=== PATIENT | male | born 1990 | race Caucasian/White ===

== ENCOUNTER 2018-03-09 16:03 | Observation (INO) ==
[2018-03-09] MEDS ORDERED: Naloxone 0.4 MG/ML INJ IVP PRN (18:56)
--- NOTE | 2018-03-09 18:56 | Internal Med History&Physical ---
<TarpleyRona Jimenez - Last Filed: 03/09/18 21:02> Date of Encounter: 03/09/18 Time of Encounter: 18:56 Internal Medicine - H&P: HPI Chief complaint: Cyclic vomiting Admitted From: Hospital to Hospital Transfer ([facility]) Plans for Post Hospital Care: Home History of present illness: Mr. Horvath is a 27 year old male with hx of gastroenteritis. The patient went to [facility] today after having N and V for the past 3 days. The patient was being dismissed and and began to have dizziness. Orthostatics were negative in the ED, will get another set in the am. Ct of abd/pelvis showed no acute processes. The patient indicated that he took one of his grandfathers zantac a few days ago and felt better for a little while. His wbc is 15.0, ast 19, alt 21 , amylase is 25. The patient urine is + for cannabinoids. The vomiting is likely a result of cannabinoid hyperemesis syndrome. Patient is npo. Prior to my assessment the patient was in the shower in the patient room. He indicated that the abdominal pain gets better after taking hot showers. Past Med Surg Social Fam HX - Past Medical History Medical history: no medical history Psychiatric history: ADHD, bipolar - Past Surgical History Additional surgical history: foot surgery. - Social History Smoking Status: Current every day smoker Smokeless Tobacco Status: No Alcohol use: none Drug use: none, other - Family History Mother Living Status: Still Living Father History Unknown: Yes Internal Medicine - H&P: Meds Dicyclomine [Bentyl] 20 mg PO QID PRN #20 capsule 03/09/18 [Rx] Omeprazole [PriLOSEC] 20 mg PO DAILY #30 cap 03/09/18 [Rx] Ondansetron ODT [Zofran ODT] 4 mg PO Q6H PRN #10 tab.rapdis 03/09/18 [Rx] 3 Allergy/AdvReac Type Severity Reaction Status Date / Time No Known Allergies Allergy Verified 03/09/18 10:49 All Systems PM: A 10-system review of systems was performed and is negative for pertinent findings except as documented above in the HPI. - Constitutional Constitutional: weight loss (reported 30 pound lose since last year), no chills , no fever(s), no night sweats - EENT Eyes: no change in vision, no discharge, no pain, no photophobia Ears: no ear discharge, no ear pain, no tinnitus Nose, mouth and throat: no dysphagia, no nasal discharge, no neck pain, no sore throat - Cardiovascular Cardiovascular ROS IM: no chest pain, no diaphoresis, no dyspnea, no lightheadedness, no palpitations, no syncope - Respiratory Respiratory: no cough, no dyspnea, no wheezing, no excessive phlegm production - Gastrointestinal Gastrointestinal: abdominal pain, nausea, vomiting, no diarrhea, no hematemesis , no hematochezia, no melena - Musculoskeletal Musculoskeletal ROS IM: no numbness, no tingling - Integumentary Integumentary IM: no rash, no unusual bruising - Neurological Neurological ROS: no confusion, no convulsions, no focal weakness, no numbness, no tingling, no tremor(s) - Hematologic/Lymphatic Hematologic/Lymphatic: no easy bruising - Constitutional Vitals: Temp Pulse Resp BP Pulse Ox 97.8 F 52 17 150/76 99 03/09/18 18:17 03/09/18 18:17 03/09/18 18:17 03/09/18 18:17 03/09/18 18:17 General appearance: Present: A&O X 3, answers questions appropriately Exam: 10 Point exam as outlined below - Head Head exam: Present: atraumatic, normal inspection, normocephalic - Eye Eye exam: Present: PERRL, conjuntiva pink, sclera anicteric Pupils: Present: PERRL - Neck Neck exam general surgery: Present: supple, trachea midline. Absent: lymphadenopathy - Respiratory Respiratory exam: Present: CTAB. Absent: accessory muscle use, rales, rhonchi, wheezes - Cardiovascular Cardiovascular exam: Present: RRR, +S1, +S2. Absent: diastolic murmur, gallop, rubs, systolic murmur - GI/Abdominal GI/Abdominal exam: Present: normal bowel sounds, soft, tenderness (Around umbilical area), no peritoneal signs. Absent: distended - Extremities Exam Extremities exam: Present: warm, radial pulses palpable and symmetrical. Absent : calf tenderness, cyanotic, pedal edema - Neurological Exam Neurological exam: Present: CN II-XII intact, oriented X3, no focal deficits. Absent: pronater drift, facial droop, speech deficit - Skin Skin exam: Present: dry, intact - Assessment and plan (1) Cyclic vomiting syndrome Current Visit: No Status: Acute Assessment and plan: Ct of abdomen without acute processes. Zofran iv prn Benadryl iv prn Protonix daily Qualifiers: Vomiting Intractability: non-intractable Nausea presence: with nausea Qualified Code(s): G43.A0 - Cyclical vomiting, not intractable (2) Cannabinoid hyperemesis syndrome Current Visit: Yes Status: Acute Assessment and plan: Patient + for cannabinoid use. Zofran iv prn Benadryl iv prn Protonix bid (3) Abdominal pain Current Visit: Yes Status: Acute Assessment and plan: Ct of abdomen without acute processes. Zofran iv prn Benadryl iv prn Protonix daily Qualifiers: Abdominal location: periumbilical Qualified Code(s): R10.33 - Periumbilical pain - Time Spent With Patient Total time spent is greater than 50% in coordination of care (as documented) at patient's floor/unit and/or counseling patient: less than 15 minutes <Benjamin Orellana - Last Filed: 03/09/18 21:49> Date of Encounter: 03/09/18 Internal Medicine - H&P: HPI History of present illness: Mr. Horvath is a 27 year old male All Systems PM: A 10-system review of systems was performed and is negative for pertinent findings except as documented above in the HPI. - Constitutional Vitals: Temp Pulse Resp BP Pulse Ox 97.8 F 52 17 150/76 99 03/09/18 18:17 03/09/18 18:17 03/09/18 18:17 03/09/18 18:17 03/09/18 20:02 - Attending Attestation I have seen and examined the patient with Rona Doty CNP and agree with his/ her assessment and plan. 27-year-old mindy with history of marijuana abuse presented with intermittent history of nausea and vomiting for the last 6 years which gradually worsened over the last few days. Physical exam was unremarkable with normal temperature and vital signs. Abdomen is soft and nontender without any rebound or guarding. Lap showed leukocytosis of 15 but otherwise unremarkable. Urine tox screen was positive for marijuana. He also states the hot shower and being in a dark room improves his symptoms. He likely has cyclical vomiting syndrome/cavities hyperemesis syndrome. We will treat symptomatically with Zofran, Phenergan, and Toradol. There is anecdotal evidence for usage of D10 (for children) which we will try. He will benefit from prophylactic therapy as an outpatient and cessation of marijuana use which he was extensively counseled on. Benjamin Orellana MD - Time Spent With Patient Total time spent is greater than 50% in coordination of care (as documented) at patient's floor/unit and/or counseling patient:
[2018-03-09] MEDS ORDERED: 0.9 % Sodium Chloride 1,000 ML IVC SCH (19:00)
[2018-03-09] MEDS ORDERED: Ondansetron 4 MG/2 ML VIAL IVP PRN (19:03)
[2018-03-09] MEDS: Pantoprazole 40 MG VIAL IVP SCH (20:08)
[2018-03-09] MEDS ORDERED: D10% in Water 500 ML IV SOLUTION IVC SCH (22:15)
[2018-03-09] MEDS: D10% in Water 500 ML IVC SCH (23:34)
[2018-03-10] MEDS: Pantoprazole 40 MG VIAL IVP SCH ×2 (05:17→15:50)
[2018-03-10 05:23] LABS: Basophils % 0.2 %; Eosinophils % 0.3 %; Hematocrit 43.4 % (37.5-50.1); Hemoglobin 14.4 g/dL (12.9-16.9); Immature Granulocytes % 0.3 % (0-4); Lymphocytes # 2.9 K/mcL (0.6-4.6); Lymphocytes % 27.7 %; Mean Corpuscular HGB Conc 33.2 g/dL (31.6-35.5); Mean Corpuscular Hemoglobin 28.5 pg (28.0-33.3); Mean Corpuscular Volume 85.8 fL (83.0-100.0); Mean Platelet Volume 11.6 fL (9.4-12.4); Monocytes % 9.5 %; Neutrophils # 6.5 K/mcL (1.6-8.9); Platelet Count 185 K/mcL (140-400); Red Blood Count 5.06 M/mcL (4.19-5.50); Red Cell Distribution Width 13.8 % (11.5-14.5)
[2018-03-10 05:36] LABS: BUN/Creatinine Ratio 18 (6-26); Blood Urea Nitrogen 16 mg/dL (6-20); Carbon Dioxide 20 mEq/L (23-29); Chloride 112 mEq/L (98-107); Glucose 100 mg/dL (70-105); Osmolality,Calculated 289 (280-300); Potassium 3.7 mEq/L (3.5-5.1); Sodium 139 mEq/L (136-145); eGFR For Non-African Americans > 60 (> 60)
--- NOTE | 2018-03-10 09:24 | Internal Med Progress Note ---
Hospitalist Progress Note - Encounter Date of Encounter: 03/10/18 Time of Encounter: 09:24 - Subjective Interval History: Patient seen and examined at bedside, he continues to experience nausea - Exam Vitals: Temp Pulse Resp BP Pulse Ox 98.0 F 68 16 117/67 97 03/10/18 07:12 03/10/18 07:12 03/10/18 07:12 03/10/18 07:12 03/10/18 07:12 Exam: Constitutional Constitutional: no chills, no fever(s), no night sweats - EENT Eyes: no change in vision, no discharge, no pain, no photophobia Nose, mouth and throat: no dysphagia, no nasal discharge, no neck pain, no sore throat - Cardiovascular Cardiovascular ROS IM: no chest pain, no diaphoresis, no dyspnea, no lightheadedness, no palpitations, no syncope - Respiratory Respiratory: cough - Gastrointestinal Gastrointestinal: no abdominal pain, diarrhea- has nausea, vomiting - Genitourinary Genitourinary: no change in urinary stream, no dysuria, no flank pain, no hematuria - Musculoskeletal Musculoskeletal ROS IM: no numbness, no tingling - Integumentary Integumentary IM: no rash, no unusual bruising - Neurological Neurological ROS: no confusion, no convulsions, no focal weakness, no numbness, no tingling, no tremor(s) - Psychiatric Psychiatric: anxiety - Assessment and Plan (1) Abdominal pain Current Visit: Yes Status: Acute Assessment and Plan: 1 CT of abd without acute process- no white count or fever Cont zofran - phenergan as needed Benadryl PRN Protonix BID stool occult blood (2) Cannabinoid hyperemesis syndrome Current Visit: Yes Status: Acute Assessment and Plan: 1 patient positive for cannabinoid - he does admit to marajuana use cont with zofran prn nausea benadryl prn IV Protonix BID phenergan IV advance diet as needed (3) Intractable vomiting with nausea Current Visit: Yes Status: Acute Assessment and Plan: Patient + for cannabinoid use. Zofran iv prn Benadryl iv prn Protonix bid IVF advance diet as tolerated monitor electrolytes and replace as needed DVT Prophylaxis: SCD - Time Spent with Patient Total time spent is greater than 50% in coordination of care (as documented) at patient's floor/unit and/or counseling patient: Internal Medicine: Result - Labs CBC & Chem 7: 03/10/18 04:32 03/10/18 04:32 Labs: Short CBC 03/10/18 Range/Units 04:32 WBC 10.5 (4.3-11.1) K/mcL Hgb 14.4 (12.9-16.9) g/dL Hct 43.4 (37.5-50.1) % Plt Count 185 (140-400) K/mcL Neutrophils # 6.5 (1.6-8.9) K/mcL BMP 03/10/18 04:32 Sodium 139 Potassium 3.7 Chloride 112 H Carbon Dioxide 20 L BUN 16 Creatinine 0.87 Glucose 100 Calcium 9.0 - VTE Documentation of Mechanical Device: Venous foot pump, device Consult Discharge Plan - Plan Referrals: NONE,PCP [Primary Care Provider] - (1) Abdominal pain Qualifiers: Abdominal location: periumbilical Qualified Code(s): R10.33 - Periumbilical pain (3) Intractable vomiting with nausea Qualifiers: Vomiting type: cyclical vomiting Qualified Code(s): G43.A1 - Cyclical vomiting, intractable
[2018-03-10] MEDS ORDERED: *HR* Promethazine 25 MG/ML VIAL IVP PRN (14:20)
[2018-03-10] MEDS: D10% in Water 500 ML IVC SCH ×2 (15:50→15:56)
[2018-03-11 05:22] LABS: Basophils # 0.1 K/mcL (0.0-0.2); Basophils % 0.6 %; Eosinophils # 0.1 K/mcL (0.0-0.6); Hematocrit 41.2 % (37.5-50.1); Hemoglobin 13.9 g/dL (12.9-16.9); Immature Granulocytes % 0.5 % (0-4); Lymphocytes # 3.1 K/mcL (0.6-4.6); Lymphocytes % 36.6 %; Mean Corpuscular HGB Conc 33.7 g/dL (31.6-35.5); Mean Corpuscular Hemoglobin 29.4 pg (28.0-33.3); Mean Corpuscular Volume 87.3 fL (83.0-100.0); Mean Platelet Volume 10.8 fL (9.4-12.4); Monocytes # 0.7 K/mcL (0.0-1.3); Monocytes % 8.5 %; Neutrophils # 4.4 K/mcL (1.6-8.9); Platelet Count 205 K/mcL (140-400); Red Blood Count 4.72 M/mcL (4.19-5.50); Red Cell Distribution Width 13.6 % (11.5-14.5); Segmented Neutrophils % 52.8 %
[2018-03-11] MEDS: Pantoprazole 40 MG VIAL IVP SCH ×2 (05:29→18:02)
[2018-03-11 05:45] LABS: BUN/Creatinine Ratio 14 (6-26); Blood Urea Nitrogen 13 mg/dL (6-20); Calcium 8.7 mg/dL (8.6-10.3); Carbon Dioxide 22 mEq/L (23-29); Chloride 110 mEq/L (98-107); Glucose 97 mg/dL (70-105); Osmolality,Calculated 286 (280-300); Potassium 3.3 mEq/L (3.5-5.1); Sodium 138 mEq/L (136-145); eGFR For Non-African Americans > 60 (> 60)
--- NOTE | 2018-03-11 09:22 | Internal Med Progress Note ---
Hospitalist Progress Note - Encounter Date of Encounter: 03/11/18 Time of Encounter: 09:22 - Subjective Interval History: Patient seen and examined at bedside, he did have some clear liquids overnight and vomiting has improved. - Exam Vitals: Temp Pulse Resp BP Pulse Ox 97.6 F 58 17 104/65 98 03/11/18 06:23 03/11/18 06:23 03/11/18 06:23 03/11/18 06:23 03/11/18 06:23 Exam: Constitutional Constitutional: weight loss (reported 30 pound lose since last year), no chills , no fever(s), no night sweats - EENT Eyes: no change in vision, no discharge, no pain, no photophobia Ears: no ear discharge, no ear pain, no tinnitus Nose, mouth and throat: no dysphagia, no nasal discharge, no neck pain, no sore throat - Cardiovascular Cardiovascular ROS IM: no chest pain, no diaphoresis, no dyspnea, no lightheadedness, no palpitations, no syncope - Respiratory Respiratory: no cough, no dyspnea, no wheezing, no excessive phlegm production - Gastrointestinal Gastrointestinal: abdominal pain, nausea, vomiting, no diarrhea, no hematemesis , no hematochezia, states he had has had some dark stools - Musculoskeletal Musculoskeletal ROS IM: no numbness, no tingling - Integumentary Integumentary IM: no rash, no unusual bruising - Neurological Neurological ROS: no confusion, no convulsions, no focal weakness, no numbness, no tingling, no tremor(s) - Hematologic/Lymphatic Hematologic/Lymphatic: no easy bruising - Assessment and Plan (1) Abdominal pain Current Visit: Yes Status: Acute Assessment and Plan: 1 CT of abd without acute process- no white count or fever Cont zofran - phenergan as needed Benadryl PRN Protonix BID stool occult blood - positive GI was consulted and patient is nothing by mouth and will undergo EGD today (2) Cannabinoid hyperemesis syndrome Current Visit: Yes Status: Acute Assessment and Plan: 1 patient positive for cannabinoid - he does admit to marajuana use cont with zofran prn nausea benadryl prn IV Protonix BID phenergan IV advance diet as needed (3) Intractable vomiting with nausea Current Visit: Yes Status: Acute Assessment and Plan: Patient + for cannabinoid use. Zofran iv prn Benadryl iv prn Protonix bid IVF advance diet as tolerated monitor electrolytes and replace as needed DVT Prophylaxis: SCD - Time Spent with Patient Total time spent is greater than 50% in coordination of care (as documented) at patient's floor/unit and/or counseling patient: Internal Medicine: Result - Labs CBC & Chem 7: 03/11/18 04:23 03/11/18 04:23 Labs: Short CBC 03/11/18 Range/Units 04:23 WBC 8.3 (4.3-11.1) K/mcL Hgb 13.9 (12.9-16.9) g/dL Hct 41.2 (37.5-50.1) % Plt Count 205 (140-400) K/mcL Neutrophils # 4.4 (1.6-8.9) K/mcL BMP 03/11/18 04:23 Sodium 138 Potassium 3.3 L Chloride 110 H Carbon Dioxide 22 L BUN 13 Creatinine 0.90 Glucose 97 Calcium 8.7 - VTE Documentation of Mechanical Device: Venous foot pump, device Consult Discharge Plan - Plan Referrals: NONE,PCP [Primary Care Provider] - (1) Abdominal pain Qualifiers: Abdominal location: periumbilical Qualified Code(s): R10.33 - Periumbilical pain (3) Intractable vomiting with nausea Qualifiers: Vomiting type: cyclical vomiting Qualified Code(s): G43.A1 - Cyclical vomiting, intractable
[2018-03-11] MEDS ORDERED: 0.9 % Sodium Chloride 1,000 ML IVC SCH (14:45)
[2018-03-11] MEDS ORDERED: *HR* Midazolam HCl 5 MG/5 ML VIAL IVP ONE ×2 (14:50→15:07)
[2018-03-11] MEDS ORDERED: *HR* FentaNYL (PF) 100 MCG/2 ML VIAL ONE (14:51)
[2018-03-11] MEDS ORDERED: Tetracaine/Benzocaine/Butamben 200MG/SPRAY (100SPY/BOT) MM ONE (15:07)
[2018-03-11] MEDS ORDERED: *HR* FentaNYL (PF) 100 MCG/2 ML VIAL IVP ONE (15:07)
[2018-03-11] MEDS ORDERED: Simethicone 40 MG/0.6 ML MLS IR ONE (15:07)
--- NOTE | 2018-03-11 15:09 | Pre-Sedation Evaluation ---
Pre-sedation evaluation - Pre-sedation checklist Date of procedure: 03/11/18 Procedure: egd Recent Vitals: Last Vital Signs Temp 98.1 F 03/11/18 15:04 Pulse 53 03/11/18 15:04 Resp 16 03/11/18 15:04 BP 129/77 03/11/18 15:04 Pulse Ox 100 03/11/18 15:04 H&P (including ROS) documented in medical record: Yes Previous reaction to sedatives/anesthetics: No Dietary Status: NPO after Midnight Dentition: poor dentition ASA Classification *see protocol: CLASS I-Normal, healthy patient, CLASS III- Severe systemic disease Plan of Care: Pt appropriate candidate for procedure/moderate/conscious sedation , Risks/benefits of procedure/sedation discussed w/ patient/family Cardiac Registry (Cardio Only) - Functional Capacity - Clincal Frailty Scale
[2018-03-11] MEDS ORDERED: *HR* Promethazine 25 MG/ML VIAL IVP ONE (15:11)
--- NOTE | 2018-03-11 15:17 | Gastroenterology Consult Note ---
<GibsonJosé sinha - Last Filed: 03/11/18 15:15> Date of Encounter: 03/11/18 Time of Encounter: 11:45 - Assessment and plan (1) Abdominal pain Current Visit: Yes Status: Acute Assessment and plan: Continue PPI. Plan for EGD today to r/o esophagitis, gastritis, duodenitis, PUD , MW tear, or AVM. Keep NPO for scopes. Qualifiers: Abdominal location: periumbilical Qualified Code(s): R10.33 - Periumbilical pain (2) Intractable vomiting with nausea Current Visit: Yes Status: Acute Assessment and plan: Likely secondary to marijuana use. Continue antiemetic. Patient encouraged to stop smoking marijuana. Plan for EGD today. Qualifiers: Vomiting type: cyclical vomiting Qualified Code(s): G43.A1 - Cyclical vomiting, intractable - Time Spent With Patient Total time spent is greater than 50% in coordination of care (as documented) at patient's floor/unit and/or counseling patient: GI History of Present Illness - Data of Consult Patient: new to practice Consult date: 03/11/18 Requesting Physician: Tadeo Polk MD - Consult Narrative Reason for consult: Abdominal pain, melena History of present illness: Mr. Horvath is a 27 year old male with PMHx of gastroenteritis who presented to [facility] ED with nause and vomiting for 3 days. Symptoms improved after taking a Zantac. CT A/P with no acute abnormalities. The patient urine was positive for cannabinoids. We have been consulted to evaluate tarry stools and abdominal pain. Hgb 14.4 on admission and this morning Hgb 13.9. Procedures: None NSAIDs: None Anticoagulation: None Past Med Surg Social Fam HX - Past Medical History Medical history: no medical history Psychiatric history: ADHD, bipolar - Past Surgical History Additional surgical history: foot surgery. - Social History Smoking Status: Current every day smoker Smokeless Tobacco Status: No Alcohol use: none Drug use: none, other - Family History Mother Living Status: Still Living Father History Unknown: Yes - Gastrointestinal Gastrointestinal: Present: as per HPI - Constitutional Constitutional: as per HPI - EENT Eyes: as per HPI Ears: Present: as per HPI Nose, mouth and throat: Present: as per HPI - Cardiovascular Cardiovascular ROS: Present: as per HPI - Respiratory Respiratory IM: Present: as per HPI - Genitourinary Genitourinary: Absent: change in color, Urinary frequency - Neurological ROS Neurological GI: Present: as per HPI - Hematologic/Lymphatic Hematologic/Lymphatic pediatric: Present: as per HPI - Musculoskeletal Musculoskeletal ROS GI: Present: as per HPI - Integumentary Integumentary GI: Present: as per HPI - Psychiatric ROS Psychiatric GI: Present: as per HPI - Endocrine Endocrine IM: Present: as per HPI - Constitutional Vitals: Temp Pulse Resp BP Pulse Ox 98.1 F 64 16 139/76 97 03/11/18 15:04 03/11/18 15:10 03/11/18 15:10 03/11/18 15:10 03/11/18 15:10 General appearance: Present: cooperative, A&O X 3, no acute distress, answers questions appropriately - Head Head exam: Present: atraumatic, normocephalic - Eye Eye exam: Present: normal appearance, sclera anicteric - ENT ENT exam: Present: mucous membranes dry - Neck Neck exam general surgery: Present: normal inspection, trachea midline - Respiratory Respiratory exam: Present: CTAB. Absent: rales, rhonchi - Cardiovascular Cardiovascular exam: Present: RRR, +S1, +S2 - GI/Abdominal GI/Abdominal exam: Present: normal bowel sounds, soft, tenderness (epigastric), no peritoneal signs. Absent: distended, firm, guarding - Rectal Rectal exam: Present: deferred - Extremities Exam Extremities exam: Present: warm - Neurological Exam Neurological exam: Present: no focal deficits - Psychiatric Psychiatric exam: Present: normal affect, normal mood - Skin Skin exam: Present: dry, intact, normal color, warm Results - Labs CBC & Chem 7: 03/11/18 04:23 03/11/18 04:23 Labs: Last Result Calcium 8.7 mg/dL (8.6-10.3) 03/11/18 04:23 Stool Occult Blood Positive (Negative) A 03/10/18 16:35 Entire Visit Hgb 13.9 g/dL (12.9-16.9) 03/11/18 04:23 Hct 41.2 % (37.5-50.1) 03/11/18 04:23 Consult Discharge Plan - Plan Referrals: NONE,PCP [Primary Care Provider] - Prescriptions: Omeprazole [PriLOSEC] 20 mg PO DAILY #30 cap <[place] - Last Filed: 03/11/18 17:50> Date of Encounter: 03/11/18 Time of Encounter: 15:00 - Time Spent With Patient Total time spent is greater than 50% in coordination of care (as documented) at patient's floor/unit and/or counseling patient: GI History of Present Illness - Data of Consult Requesting Physician: Tadeo Polk MD - Consult Narrative History of present illness: Mr. Horvath is a 27 year old male - Constitutional Vitals: Temp Pulse Resp BP Pulse Ox 98.1 F 89 18 130/72 96 03/11/18 15:04 03/11/18 15:21 03/11/18 15:21 03/11/18 15:21 03/11/18 15:21 Results - Labs CBC & Chem 7: 03/11/18 04:23 03/11/18 04:23 Labs: Last Result Calcium 8.7 mg/dL (8.6-10.3) 03/11/18 04:23 Stool Occult Blood Positive (Negative) A 03/10/18 16:35 Entire Visit Hgb 13.9 g/dL (12.9-16.9) 03/11/18 04:23 Hct 41.2 % (37.5-50.1) 03/11/18 04:23 - Attending Attestation I have personally performed a face to face evaluation on this patient. I have reviewed and agree with the care plan. History and Exam by me shows: Patient seen patient with the complaint abdominal pain along with nausea vomiting per patient he has been going through a lot of stress lately due to some issues with his girlfriend. Does complain of diarrhea but then another time he does have constipation. Assessment: Patient with possible cyclic vomiting syndrome versus IBS. Recommendation: EGD to rule out GI causes for his symptom. Also we will do stool panel along with calpo
[2018-03-11 15:22] VITALS: BP 130/72
--- NOTE | 2018-03-11 16:54 | Discharge Summary ---
- NOTES TO OUTPATIENT PROVIDER Notes to Outpatient Provider: Had EGD which did show mild infkammation edema and erosion found in the duodenal bulb - recommend jozef PPI Orders not resulted at time of discharge: Pending orders 03/11/18 15:28 Surgical Pathology [PTH] Routine 03/12/18 04:00 CBC [Complete Blood Count] [HEME] AM 0400 Chem 7 [Basic Metabolic Panel] AM 0400 03/13/18 04:00 CBC [Complete Blood Count] [HEME] AM 0400 Chem 7 [Basic Metabolic Panel] AM 0400 Date of Encounter: 03/11/18 Time of Encounter: 16:49 - Discharge Diagnosis (1) Abdominal pain Priority: Primary Status: Acute Assessment and Plan: 1 CT of abd without acute process- no white count or fever Cont zofran - phenergan as needed Benadryl PRN Protonix BID stool occult blood - positive GI was consulted and patient is nothing by mouth and will undergo EGD today Qualifiers: Abdominal location: periumbilical Qualified Code(s): R10.33 - Periumbilical pain (2) Cannabinoid hyperemesis syndrome Priority: Secondary Status: Acute (3) Intractable vomiting with nausea Priority: Primary Status: Acute Qualifiers: Vomiting type: cyclical vomiting Qualified Code(s): G43.A1 - Cyclical vomiting, intractable Hospital course: Mr. Horvath is a 27 year old male PMH of ADHD bipolar current cannabinoid use. Presented to [facility] after having N?N x [address] abd/pelvis no acute process Took some zantac with some relief. Lab unremarkable -except potassium low was given oral replacement. Tox screen positive for marajuana Admitted to eating edible marajuana over the weekend . He also complained of dark tarry stools and epigastric pain. GI consulted patient had EGD which showed mild duodenitis- Advised patient to stop using marajuana which could contribute to sx. Gave patient prescription for Prilosec, set up appointment to [facility] since patient does not have PCP. He is hemodynamically stable and ready for discharge - Time Spent with Patient Total time spent providing and/or coordinating discharge services: - Discharge Medications Prescriptions: Omeprazole [PriLOSEC] 20 mg PO DAILY #30 cap Home Medications: Omeprazole [PriLOSEC] 20 mg PO DAILY #30 cap 03/11/18 [Rx] Allergies/Adverse Reactions: 3 Allergy/AdvReac Type Severity Reaction Status Date / Time No Known Allergies Allergy Verified 03/10/18 08:04 Date of admission: 03/09/18 17:44 Primary care physician: PCP NONE Consults: 03/11/18 08:05 Consult to Gastroenterology [CONS] Routine Consulting Provider: Gastroenterology Zoë Reason for Consult: abd pain dark tarry stools positive occcult Time Notified: 08:06 Call Completed: Yes Discharging clinician: Carla Esquivel Anticipated date of discharge: 03/11/18 - Constitutional Vitals: Temp Pulse Resp BP Pulse Ox 98.1 F 89 18 130/72 96 03/11/18 15:04 03/11/18 15:21 03/11/18 15:21 03/11/18 15:21 03/11/18 15:21 General appearance: Present: A&O X 3, answers questions appropriately - Head Head exam: Present: atraumatic, normocephalic - Eye Eye exam: Present: PERRL, conjuntiva pink, sclera anicteric Pupils: Present: PERRL - Neck Neck exam general surgery: Present: supple, trachea midline. Absent: lymphadenopathy - Respiratory Respiratory exam: Present: CTAB. Absent: accessory muscle use, rales, rhonchi, wheezes - Cardiovascular Cardiovascular exam: Present: RRR, +S1, +S2. Absent: diastolic murmur, gallop, rubs, systolic murmur - GI/Abdominal GI/Abdominal exam: Present: normal bowel sounds, soft, no peritoneal signs. Absent: distended, tenderness - Extremities Exam Extremities exam: Present: warm, radial pulses palpable and symmetrical. Absent : calf tenderness, cyanotic, pedal edema - Neurological Exam Neurological exam: Present: CN II-XII intact, oriented X3, no focal deficits. Absent: pronater drift, facial droop, speech deficit - Skin Skin exam: Present: dry, intact - Patient Status Disposition: Home, Self-Care Condition: Good - Discharge Instructions Follow Up With: NONE,PCP [Primary Care Provider] - - Diet and Activity Activity: increase activity as tolerated Diet: advance to your usual diet - VTE Documentation of Mechanical Device: Venous foot pump, device
== END 2018-03-11 18:28 | disposition home or self-care (01) ==
LOC: 3BNU
PROVIDERS: ADMIT Family Medicine; ATTEND Family Medicine
PROC: ENDOEBX (2018-03-11 14:00)